=== PATIENT | female | born 1945 | race Caucasian/White ===

== ENCOUNTER → 2017-04-08 | Outpatient (CLI) | payer MEDICARE, OTHER ==
[~2017-04-08] MED LIST: ALBU18HF INHALATION; ASPI-676 PO; CALC500T99 PO; ERGO500014 PO; LEVO500V2 PO; METF850T PO; fosamax PO; glimepiride PO
--- NOTE | 2017-04-08 14:12 | RADRPT ---
PROCEDURE: XR Abdomen. CLINICAL INDICATION: Abdomen pain. TECHNIQUE: AP supine abdomen x-ray. COMPARISON: None. FINDINGS: The bowel gas pattern is normal. There is no evidence of obstruction. There are no abnormal calcifications overlying the urinary tracts. There are degenerative changes of the spine. There is no fracture or lytic lesion. IMPRESSION: 1. Degenerative changes of the spine. 2. Otherwise unremarkable abdomen radiograph. RPTAT: QQ .Edgard Alejandra MD, MD Date Time Electronically viewed and signed by .Edgard Alejandra MD, MD on 04/08/2017 14:11 .R/
== END | disposition home or self-care (01) ==
LOC: RAD 11:25
PROVIDERS: ATTEND General Practice
DX: K59.00 Constipation, unspecified (principal)
CPT/HCPCS: 74000

== ENCOUNTER 2019-04-24 08:48 | Emergency (ER) | payer MEDICARE, OTHER ==
[~2019-04-24] VITALS: Ht 154.9 cm; Wt 86.4 kg
[~2019-04-24 08:48] MED LIST changes: -METF850T PO; +METF850T13 PO; +TRAM50TA2 PO
[2019-04-24 08:56] VITALS: Ht 154.9 cm; Wt 86.4 kg
[2019-04-24] MEDS ORDERED: ONDANSETRON (ODT) 4 MG TAB ODT STA (09:13)
[2019-04-24] MEDS ORDERED: HYDROCODONE/APAP (5/325) TAB PO ONE (09:30)
--- NOTE | 2019-04-24 10:20 | ERD ---
ER Documentation Chief Complaint Chief Complaint left knee pain s/p fall [address] HPI 73-year-old female presenting with left knee pain after fall 3 days ago. Patient fell in the street and has had pain with walking. She has not taken medications for pain. Denies any numbness or tingling. Denies other medical problems. NKDA. Surgical history denies. Social history denies ROS All systems reviewed and are negative except as per history of present illness. Medications Home Meds Active Scripts Tramadol HCl (Tramadol HCl) 50 Mg Tablet, 50 MG PO Q4 PRN for PAIN, #20 TAB Prov:WILFRID BALLARD PA-C 04/24/19 Reported Medications Albuterol Sulfate* (Ventolin HFA*) 18 Gm Hfa.aer.ad, 2 PUFF INHALATION Q4H, #1 INHALER 09/25/15 [glimepiride] No Conflict Check, PO BID 09/25/15 [fosamax] No Conflict Check, PO monthly 09/25/15 Ergocalciferol* (Drisdol* (Vitamin D2)) 50,000 Unit Capsule, 66846 UNIT PO ON TUESDAY, CAP 07/08/15 Metformin Hcl* (Metformin Hcl*) 850 Mg Tablet, 850 MG PO BID, TAB 07/08/15 Calcium Carbonate ([id number]) 1 Tab Tablet, 1 TAB PO BID 07/08/15 Aspirin (Brianne Child) 81 Mg Chew, 81 MG PO DAILY 04/01/12 Levothyroxine Sodium* (Levothyroxine* INJ) 500 Mcg Soln, 500 MCG PO AC BREAKFAST 04/01/12 Allergies Allergies: Coded Allergies: No Known Allergy (Unverified , 04/24/19) PMhx/Soc History of Surgery: Yes (hysterectomy ) Anesthesia Reaction: No Hx Neurological Disorder: No Hx Respiratory Disorders: Yes (asthma) Hx Cardiac Disorders: No Hx Psychiatric Problems: No Hx Miscellaneous Medical Probl: No Hx Alcohol Use: No Hx Substance Use: No Hx Tobacco Use: No Smoking Status: Never smoker FmHx Family History: No diabetes, No coronary disease, No other Physical Exam Vitals Vital Signs Date Temp Pulse Resp B/P (MAP) Pulse Ox O2 O2 Flow FiO2 Time Delivery Rate 04/24/19 98.2 83 18 120/61 98 08:56 (80) Physical Exam GENERAL: The patient is well-appearing, well-nourished, in no acute distress CHEST: Clear to auscultation bilaterally. There are no rales, wheezes or rhonchi. HEART: Regular rate and rhythm. No murmurs, clicks, rubs or gallops. EXTREMITIES: Tender to palpation to left knee with no obvious deformity. Mild swelling. Pain with flexion and extension but no valgus or varus deformity. No calf tenderness or swelling. NEUROLOGIC: Alert and oriented. Cranial nerves II through XII intact. Motor strength in all 4 extremities with 5 out of 5 strength. Sensation grossly intact. SKIN: There is no apparent rash or petechiae. The skin is warm and dry. Results 24 hrs Current Medications Medications Dose Sig/Rosemarie Start Time Status Last (Trade) Ordered Route PRN Stop Time Admin Dose Reason Admin 1 tab ONCE ONCE 04/24/19 DC 04/24/19 Acetaminophen PO 09:30 09:24 / 04/24/19 09:31 Hydrocodone Bitart ([place] (5/325)) Ondansetron 4 mg ONCE STAT 04/24/19 DC 04/24/19 HCl (Zofran ODT 09:13 09:24 Odt) 04/24/19 09:14 Procedures/MDM DIAGNOSTIC IMAGING REPORT Patient: ERIKA VELAZQUEZ : 1945 Age: 73 Sex: F MR #: [id number] DOS: 04/24/1915 Ordering MD: YENI BALLARD PA-C Location: [facility] Room/Bed: PROCEDURE: Left knee CLINICAL INDICATION: knee pain after fall TECHNIQUE: 3 views of the left knee performed. COMPARISON: CR KNEE 04/14/2008 FINDINGS: No fracture detected, allowing for the limitation of osteopenia and underlying severe tricompartmental osteoarthritis. Chondrocalcinosis. Moderate sized joint effusion. Soft tissue swelling. IMPRESSION: No fracture detected allowing for the limitation of underlying osteopenia and severe tricompartmental osteoarthritis. Moderate sized joint effusion. ER Course: Knee immobilizer placed in ED. Neuro intact pre-and post splint application. MDM: 73-year-old female presenting with knee pain. Patient likely aggravated her osteo-causing her pain after her fall. I have low suspicion for acute fracture dislocation. I have low suspicion for tendon or ligament rupture. Patient is discharged with strict ER precautions and told to follow-up with primary care within 1 to 2 days for close evaluation. Patient is told symptoms change or worsen to return immediately to the ER. All questions answered at discharge Departure Diagnosis: Primary Impression: Arthritis Additional Impression: Knee pain Condition: Stable Patient Instructions: Osteoarthritis Additional Instructions: FOLLOW UP WITH YOUR PRIMARY CARE PHYSICIAN TOMORROW.Return to this facility if you are not improving as expected. WILFRID BALLARD PA-C Apr 24, 2019 10:20
[2019-04-24 10:27] VITALS: BP 118/67; PULSE 77; RESP 18
== END 2019-04-24 10:34 | disposition home or self-care (01) ==
LOC: FTE 08:48
DX: M19.90 Unspecified osteoarthritis, unspecified site (principal); J45.909 Unspecified asthma, uncomplicated; E11.9 Type 2 diabetes mellitus without complications; Z79.82 Long term (current) use of aspirin; Z79.84 Long term (current) use of oral hypoglycemic drugs
CPT/HCPCS: 73562